=== PATIENT | female | born 1945 | race Caucasian/White ===

== ENCOUNTER 2021-06-05 08:35 | Day surgery (SDC) | payer MEDICARE ==
[~2021-06-05] VITALS: Ht 152.4 cm; Wt 78.6 kg
[2021-06-05 08:53] VITALS: BP 123/93
[2021-06-05] MEDS ORDERED: OMEP-50 PO (09:09)
[2021-06-05] MEDS ORDERED: HYDR-3965 PO (09:09)
[2021-06-05] MEDS ORDERED: CELE-193 PO (09:09)
[2021-06-05] MEDS ORDERED: LEVO100T PO (09:09)
[2021-06-05] MEDS ORDERED: RIZA10TA27 PO (09:09)
[2021-06-05] MEDS ORDERED: ATOR20TA66 PO (09:09)
[2021-06-05] MEDS ORDERED: DULO-31 PO (09:09)
[2021-06-05] MEDS ORDERED: MIDAZolam 1 MG/ML 5ML VIAL ONE (09:14)
[2021-06-05] MEDS ORDERED: fentaNYL/PF 50MCG/1 ML 2ML syringe ONE (09:14)
[2021-06-05 09:51] VITALS: BP 119/67
[2021-06-05 09:59] VITALS: BP 128/58
[2021-06-05 10:09] VITALS: BP 134/75
[2021-06-05 10:19] VITALS: BP 128/75
[2021-06-05 10:29] VITALS: BP 125/74
== END 2021-06-05 10:50 | disposition home or self-care (01) ==
LOC: GI LAB 08:35
PROVIDERS: ATTEND Internal Medicine Gastroenterology
DX: K62.5 Hemorrhage of anus and rectum (principal); R12 Heartburn; D12.5 Benign neoplasm of sigmoid colon; D12.4 Benign neoplasm of descending colon; K63.89 Other specified diseases of intestine; K64.0 First degree hemorrhoids; K44.9 Diaphragmatic hernia without obstruction or gangrene; K29.50 Unspecified chronic gastritis without bleeding; K20.80 Other esophagitis without bleeding
CPT/HCPCS: 43239; 45380; 99153; G0500; J2250; J3010; J7040; Z7512; 88305; 99152; A4620